=== PATIENT | female | born 1960 | race Caucasian/White ===

== ENCOUNTER 2017-10-24 14:47 | Observation (INO) | payer OTHER ==
[2017-10-24] MEDS ORDERED: Nitroglycerin TAB 0.4 MG* 0.4 MG TAB SL ONE (15:29)
[2017-10-24] MEDS ORDERED: Aspirin EC Low Dose* 81 MG TAB.EC PO ONE (15:29)
--- NOTE | 2017-10-24 15:47 | RAD ---
HISTORY: Chest pain COMPARISONS: None VIEWS: 1: frontal portable view of the chest at 3:33 PM FINDINGS: LINES AND TUBES: None. CARDIOMEDIASTINAL SILHOUETTE: The cardiomediastinal silhouette is normal for portable technique. PLEURA: The costophrenic angles are sharp. No pleural abnormalities are noted. LUNG PARENCHYMA: There is hyperinflation. ABDOMEN: The upper abdomen is clear. There is no subphrenic gas. BONES AND SOFT TISSUES: No bone or soft tissue abnormalities are noted. IMPRESSION: NO ACTIVE CARDIOPULMONARY DISEASE.
[2017-10-24] MEDS ORDERED: Morphine INJ* 2 MG/ML 1 ML CARPUJECT ONE (15:53)
[2017-10-24] MEDS ORDERED: Ondansetron INJ* 2 MG/ML VIAL ONE (15:53)
[2017-10-24 15:57] LABS: ABS Basophils 0 10^3/ul (0-0.2); ABS Eosinophils 0.1 10^3/ul (0-0.6); ABS Monocytes 0.4 10^3/ul (0-0.8); ABS Neutrophils 6.6 10^3/ul (1.5-7.7); ABS Nucleated RBC 0 10^3/ul; Eosinophil % 1.7 % (0-6); Hematocrit 43 % (35-47); Hemoglobin 14.2 g/dl (12.0-16.0); Mean Corpuscular HGB Conc 33 g/dl (31-36); Mean Corpuscular Hemoglobin 30 pg (27-31); Mean Corpuscular Volume 89 fL (80-97); Mean Platelet Volume 8.6 um3 (7.4-10.4); Nucleated Red Blood Cells % 0; Platelet Count 250 10^3/ul (150-450); Red Blood Count 4.79 10^6/ul (4.0-5.4); Red Cell Distribution Width 13 % (10.5-15); White Blood Count 8.2 10^3/ul (3.5-10.8)
[2017-10-24 16:14] LABS: EGFR Non-African American 81.9 (>60)
[2017-10-24] MEDS ORDERED: Iodixanol 320 (CONTRAST) 100 ML SDV IV ONE (16:37)
--- NOTE | 2017-10-24 16:49 | RAD ---
HISTORY: Chest pain to back COMPARISONS: None TECHNIQUE: Multiple contiguous axial CT scans were obtained of the chest, abdomen, and pelvis after the administration of intravenous contrast. Coronal and sagittal multiplanar reformations are submitted for review.. 3-D volumetric reconstructions of the aorta are also submitted for review. FINDINGS: CHEST NECK AND THYROID: The lower neck and thyroid are unremarkable. CHEST WALL: There is no lower cervical, axillary, or supraclavicular lymphadenopathy by size criteria. HEART AND PERICARDIUM: The heart is unremarkable. AORTA AND PULMONARY VASCULATURE: The aorta and pulmonary vasculature are normal. There is no aneurysmal dilatation. There is no aortic intimal flap. Evaluation of the pulmonary arteries is somewhat limited by suboptimal contrast opacification; however, there is no appreciable pulmonary embolism. MEDIASTINUM: There is no mediastinal lymphadenopathy by size criteria. QUAN: There is no hilar lymphadenopathy by size criteria. AIRWAY AND ESOPHAGUS: The airway is unremarkable, without endobronchial filling defect. The esophagus is grossly normal. LUNG PARENCHYMA: The lungs are clear. PLEURA: No pleural abnormalities are noted. BONES AND SOFT TISSUES: No bone or soft tissue abnormalities are noted. ABDOMEN/PELVIS: LIVER: The liver is normal in shape, size, contour, and attenuation. BILE DUCTS: There is no intrahepatic or extrahepatic biliary dilatation. GALLBLADDER: The gallbladder is normal, without pericholecystic inflammatory change. PANCREAS: The pancreas is normal, without mass or ductal dilatation. SPLEEN: Normal in size and appearance. UPPER GI TRACT: Evaluation of the gastrointestinal tract is limited by incomplete gastric distention. The upper GI tract is unremarkable. SMALL BOWEL & MESENTERY: The small bowel is normal in contour, course, and caliber. There is no obstruction or dilatation. COLON: The colon is normal in contour, course, caliber. There is no pericolonic inflammatory change. ADRENALS: Normal bilaterally. KIDNEYS: The kidneys are normal in shape, size, contour, and axis. There is no hydronephrosis or nephrolithiasis. BLADDER: The bladder is smooth in contour. PELVIC ORGANS: The uterus and adnexa are grossly normal for technique. AORTA: The aorta is normal. IVC: Unremarkable LYMPH NODES: There is no lymphadenopathy by size criteria. ABDOMINAL WALL: There is small fat-containing umbilical hernia. BONES AND SOFT TISSUES: Unremarkable OTHER: None IMPRESSION: NO AORTIC ANEURYSMAL DILATATION. NO INTIMAL FLAP TO SUGGEST DISSECTION. NO ACUTE CT PATHOLOGY OF THE VISUALIZED CHEST, ABDOMEN, OR PELVIS.
[2017-10-24] MEDS ORDERED: Acetaminophen TAB* 325 MG PO PRN (17:21)
[2017-10-24] MEDS ORDERED: Al Hydrox/Mg Hydrox/Simet LIQ* 30 ML UDC PO PRN (17:21)
[2017-10-24] MEDS ORDERED: Enoxaparin(*) 40 MG/0.4 ML SYR SUBCUT SCH (18:00)
--- NOTE | 2017-10-24 23:43 | HP ---
HISTORY AND PHYSICAL: DATE OF ADMISSION: 10/24/17 TIME OF ADMISSION: 5:42 p.m. CHIEF COMPLAINT: Abdominal pain. HISTORY OF PRESENT ILLNESS: This is a 57-year-old female with history of paroxysmal atrial fibrillation, who presents to the emergency department after she experienced a sharp twisting epigastric abdominal pain while she was on a wine tour today. She had had about 2 glasses of wine and some [place] for the "[place]" tour when she developed sudden onset pain in the epigastric area that radiated around to both of her sides and into her mid back. She described the feeling as indigestion and a twisting pain. So, they decided to come to the emergency department. The pain was not in her chest at any point. When she got to the emergency department, the pain was described as 3/10 and when she went to CAT scan, it increased to a 7/10. The pain lasted approximately 1 hour and resolved on its own. She had been standing when it began and it was unchanged with exertion and unchanged with rest. She had the feeling of cold sweats associated with it, but no shortness of breath, palpitations, nausea, or emesis. She has been well recently and described no recent illness. She denies recent cough, cold, runny nose, sore throat, fevers , chills, dysuria. She reports a long history of atrial fibrillation that dates back to before her daughter was born and she used to be on metoprolol; however, she has not taken it for many years. She knows when she goes into atrial fibrillation and does nothing to treat it and it resolves on its own. She does not know why she has atrial fibrillation at such a young age. PAST SURGICAL HISTORY: History of . HOME MEDICATIONS: 1. Multivitamin daily. 2. Calcium. 3. Cranberry supplement. 4. Prolia 1 time every 6 months. ALLERGIES: No known drug allergies. SOCIAL HISTORY: She is a never-smoker, she drinks occasionally for special occasions. 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 FAMILY HISTORY: Her mom at age 60 of what they think was an OR. Her dad had a thoracic aortic aneurysm at age 75. PHYSICAL EXAMINATION VITAL SIGNS: Temperature 97.1, heart rate 95, respiratory rate 17, pulse ox 100 % on room air, blood pressure 112/52. GENERAL: Alert, well-appearing female, who appears her stated age, in no distress. HEENT: Pupils equal, round at 3 mm. No nystagmus. Moist mucosa. No pharyngeal exudates or erythema. NECK: No JVP. No cervical lymphadenopathy. LUNGS: Clear bilaterally. No wheezes or rhonchi. CHEST: Regular rate and rhythm. No murmurs. PMI is nondisplaced. ABDOMEN: Soft, nontender, nondistended. No guarding or rebound. Liver is nonpalpable. No tenderness over the spinous processes. No CVA tenderness. EXTREMITIES: No edema. No rashes or ulcers. DIAGNOSTIC STUDIES/LAB DATA: White blood cells 8.2, hemoglobin 14.2, platelets 250. Sodium 140, potassium 3.9, chloride 104, bicarb 29, creatinine 0.73, lactate 1.0. Troponin 0.00. EKG: Normal sinus rhythm, normal axis, normal intervals. No ST or T-wave changes. Imaging: Chest x-ray, no active cardiopulmonary disease. CTA of the chest, abdomen, and pelvis, no aortic aneurysmal dilatation. No intimal flap to suggest dissection. No acute CT pathology of the visualized chest, abdomen, or pelvis. ASSESSMENT AND PLAN: This is a 57-year-old female with history of paroxysmal atrial fibrillation, who presents with epigastric pain while on a wine tour today. 1. Epigastric pain. We are called to admit Ms. Buck for chest pain rule out; however, she has had no chest pain. Her EKG shows no ischemic changes. However , we will continue the rule out for 2 more troponins. She may be a good candidate for an outpatient stress test depending on how her pain evolves and whether it returns over the night. I suspect this was more likely to have been indigestion than acute coronary syndrome. I am adding on lipase to her emergency department labs. Her gallbladder and pancreas appeared to be normal on the CT scan and no cholelithiasis was noted. 2. Paroxysmal atrial fibrillation. She is not on any rate-controlling medications or anticoagulation. Her CHADS2-VASc is 1 for being female. She should be on a baby aspirin, so I am adding this. 3. Osteoporosis. Continue p.o. calcium. 4. DVT prophylaxis. Lovenox subcutaneously. 5. Disposition. Admit to the telemetry floor for chest pain rule out. Regular diet for now. [id number]/[facility] #: [id number] MTDD
[2017-10-25 05:10] LABS: ABS Basophils 0 10^3/ul (0-0.2); ABS Eosinophils 0.2 10^3/ul (0-0.6); ABS Lymphocytes 1.3 10^3/ul (1.0-4.8); ABS Monocytes 0.5 10^3/ul (0-0.8); ABS Neutrophils 2.7 10^3/ul (1.5-7.7); ABS Nucleated RBC 0 10^3/ul; Eosinophil % 4.2 % (0-6); Hematocrit 40 % (35-47); Hemoglobin 13.2 g/dl (12.0-16.0); Mean Corpuscular HGB Conc 33 g/dl (31-36); Mean Corpuscular Hemoglobin 30 pg (27-31); Mean Corpuscular Volume 89 fL (80-97); Mean Platelet Volume 8.9 um3 (7.4-10.4); Nucleated Red Blood Cells % 0.1; Platelet Count 216 10^3/ul (150-450); Red Blood Count 4.46 10^6/ul (4.0-5.4); Red Cell Distribution Width 13 % (10.5-15); White Blood Count 4.7 10^3/ul (3.5-10.8)
[2017-10-25 05:25] LABS: EGFR Non-African American 90.4 (>60)
[2017-10-25] MEDS ORDERED: Aspirin EC Low Dose* 81 MG TAB.EC PO SCH (09:00)
--- NOTE | 2017-10-25 09:50 | RAD ---
Indication: RIGHT upper quadrant abdominal pain. Comparison: CT of one day prior. Technique: RIGHT upper quadrant ultrasound. Report: Appropriate direction flow documented in the portal and hepatic veins. 15.6 cm liver is normal in echogenicity. Negative for focal hepatic lesions. Negative for intrahepatic biliary dilatation. 8.9 mm common bile duct. Adequately distended gallbladder with normal 2.4 mm wall is remarkable for multiple small dependent shadowing stones. Negative for pericholecystic fluid. Negative for sonographic Benavides's sign. The pancreatic tail is partially obscured due to bowel gas with the visualized pancreas unremarkable. Negative for ascites. 11.2 cm RIGHT kidney is unremarkable. IMPRESSION: 1. Cholelithiasis without secondary findings to indicate acute cholecystitis. 2. Mild prominence of the common bile duct measuring up to 8.9 mm. Negative for conspicuous stones within the visualized segment of the common bile duct.
[2017-10-25 10:41] VITALS: BP 113/45
--- NOTE | 2017-10-26 00:42 | DS ---
DISCHARGE SUMMARY: DATE OF ADMISSION: 10/24/17. DATE OF DISCHARGE: 10/25/17. PRINCIPAL DISCHARGE DIAGNOSES: 1. Biliary colic. 2. Cholelithiasis. SECONDARY DISCHARGE DIAGNOSES: 1. Osteoporosis. 2. Paroxysmal atrial fibrillation. HOSPITAL COURSE BY PROBLEM: 1. Cholelithiasis. Ms. Steffi Buck was admitted from the emergency department with concern for acute coronary syndrome. However, her pain was described as epigastric with radiation to the back that occurred after she ate ellsworth the morning of admission. At the time of this admission, her AST was mildly elevated. However, the morning after admission, her AST and ALT increased to 139 and 140 respectively and her alk. phos increased to 117. CT abdomen and pelvis done at the emergency department showed no gallbladder or liver pathology. However, given her symptoms of epigastric pain associated with greasy food intake, a right upper quadrant ultrasound was obtained on the morning of 10/25/17 and confirmed cholelithiasis without secondary findings to indicate acute cholecystitis and also showed mild prominence of the common bile duct. Given her symptoms, her radiographic findings and her laboratory results, I suspect she had a passed stone yesterday that contributed to her presentation to the emergency department. When she arrived to the emergency department, the pain increased but resolved on its own and she remained pain free throughout her admission. She was afebrile and without leukocytosis or radiographic findings to suggest cholecystitis or choledocholithiasis. I discussed the findings of cholelithiasis with her and recommended close followup with her PCP and consideration of a surgical evaluation for cholecystectomy electively. I also recommended a low fat diet and that she should return to the emergency department should she develop ongoing or returning abdominal pain or fevers. 2. Paroxysmal atrial fibrillation. She was not in atrial fibrillation at any point during this admission. She does not take any medications for this. Her CHADS2-VASC score is 1 and she elects not to take aspirin for this. 3. Osteoporosis. She does not know why she has osteoporosis at such a young age and reports a normal unrestricted diet. She has a strong family history of osteoporosis. She has no GI upset or history of celiac disease. She takes Prolia every 6 months. DISPOSITION: Ms. Buck is discharged to home on 10/25/17. She lives in [place] and wishes to follow up with her PCP and Surgery there. PHYSICAL EXAM: At the time of discharge, temperature 97.9, heart rate 74, blood pressure 125/60, respiratory rate 16, pulse ox 96% on room air. General: Alert, well-appearing female in no distress. HEENT: Pupils equal, round and reactive to light. No nystagmus. Moist mucosa. No pharyngeal exudates or erythema. Neck: No JVP. No cervical lymphadenopathy. Chest: Regular rate and rhythm. No murmurs. PMI nondisplaced. Lungs: Clear bilaterally. No rhonchi or wheezes. Abdomen: Soft, nontender, nondistended. Liver is not palpable, negative Benavides's sign. No guarding, rebound or rigidity. No CVA tenderness and no spinous process tenderness. Extremities: No edema. No rashes and no ulcers. [id number]/[facility] #: [id number] [facility]
== END 2017-10-25 11:40 | disposition home or self-care (01) ==
LOC: ED 14:47 → MEDTELE 17:21
PROVIDERS: ADMIT Internal Medicine; ATTEND Internal Medicine
DX: K80.20 Calculus of gallbladder without cholecystitis without obstruction (principal); M81.0 Age-related osteoporosis without current pathological fracture; I48.0 Paroxysmal atrial fibrillation
CPT/HCPCS: 36415; 71045; 71275; 74174; 76705; 80048; 80053; 80076; 83605; 83690; 84484; 85025; 93005; 96372; 99284; A9270-GY; G0378; J1650; J2270; J2405; Q9967